=== PATIENT | female | born 1995 | race Caucasian/White ===

== ENCOUNTER → 2017-12-01 | Outpatient (CLI) | payer MEDICAID | LOC: FIMAGING 13:12 | PROVIDERS: ATTEND Obstetrics & Gynecology | DX: O09.212 Supervision of pregnancy with history of pre-term labor, second trimester (principal); O44.22 Partial placenta previa NOS or without hemorrhage, second trimester; O99.332 Smoking (tobacco) complicating pregnancy, second trimester; F17.210 Nicotine dependence, cigarettes, uncomplicated; Z3A.22 22 weeks gestation of pregnancy ==